=== PATIENT | female | born 1970 | race Native Hawaiian/Other Pacific Islander ===

== ENCOUNTER 2017-12-31 13:02 | Emergency (ER) | payer OTHER ==
[~2017-12-31] VITALS: Ht 160 cm; Wt 92.3 kg
[2017-12-31] MEDS ORDERED: LURA40 PO (13:21)
[2017-12-31] MEDS ORDERED: ATOR40TA28 PO (13:21)
[2017-12-31] MEDS ORDERED: METO25 PO (13:21)
[2017-12-31] MEDS ORDERED: NAPR500T6 PO (13:21)
[2017-12-31] MEDS ORDERED: GABA-533 PO (13:21)
[2017-12-31] MEDS ORDERED: HydrOXYzine PAMOATE 50 MG CAPSULE PO ONE (14:15)
[2017-12-31 14:56] VITALS: BP 110/60
== END 2017-12-31 15:09 | disposition home or self-care (01) ==
LOC: EMS 13:09
DX: F41.9 Anxiety disorder, unspecified (principal); J45.909 Unspecified asthma, uncomplicated; I10 Essential (primary) hypertension; F15.10 Other stimulant abuse, uncomplicated; F17.210 Nicotine dependence, cigarettes, uncomplicated; Z88.0 Allergy status to penicillin
CPT/HCPCS: 93005; 99284